=== PATIENT | male | born 1980 | race Caucasian/White ===

== ENCOUNTER 2016-12-10 20:38 | Emergency (ER) | payer SELFPAY ==
[~2016-12-10] VITALS: Ht 180.3 cm; Wt 131.5 kg
[2016-12-10 21:29] VITALS: BP 162/101
== END 2016-12-10 23:09 | disposition home or self-care (01) ==
LOC: ER 21:02
DX: S83.92XA Sprain of unspecified site of left knee, initial encounter (principal); I10 Essential (primary) hypertension; G47.30 Sleep apnea, unspecified; X58.XXXA Exposure to other specified factors, initial encounter; Y93.89 Activity, other specified; Y92.9 Unspecified place or not applicable; Y99.9 Unspecified external cause status
CPT/HCPCS: A4606; Z7610